=== PATIENT | male | born 1950 | race Two or more races ===

== ENCOUNTER 2019-03-16 00:32 | Emergency (ER) | payer OTHER ==
[~2019-03-16] VITALS: Ht 167.6 cm; Wt 68.0 kg
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
--- NOTE | 2019-03-16 00:55 | NUR ---
IV LINE OBTAINED ON L AC 18G. BLOOD DRAWN DIRECTOR OF CLOUD SERVICES AT BEDSIDE.
[2019-03-16] MEDS ORDERED: ACETAMINOPHEN ES 500 MG TABLET ONE (00:58)
[2019-03-16] MEDS ORDERED: ACETAMINOPHEN ES 500 MG TABLET PO ONE (01:00)
[2019-03-16] MEDS ORDERED: IV NS 0.9% 1,000 ML BAG IV ONE ×3 (01:00→04:00)
[2019-03-16 01:05] LABS: CALCIUM, SERUM 8.9 mg/dL (8.5-10.1); CREATININE 1.1 mg/dL (0.6-1.3); POTASSIUM 4.2 mmol/L (3.5-5.1)
[2019-03-16] MEDS ORDERED: CT SWABBABLE VALVE TRANS SET 1 EA INFUS.SET MC ONE (01:06)
[2019-03-16] MEDS ORDERED: IOHEXOL-300 100 ML VIAL IV ONE (01:06)
[2019-03-16] MEDS ORDERED: IV NS 0.9% 250 ML IV ONE (01:06)
[2019-03-16 01:10] LABS: BASOPHILS % (AUTO) 0.1 % (0.0-2.0); HEMATOCRIT 54 % (39-51); LYMPHOCYTES # (AUTO) 0.4 /CMM (0.8-4.8); LYMPHOCYTES % (AUTO) 1.8 % (20.0-44.0); MEAN CORPUSCULAR HGB CONC 33 g/dl (31.0-36.0); MEAN CORPUSCULAR VOLUME 89 fL (80-96); MONOCYTES # (AUTO) 0.9 /CMM (0.1-1.30); MONOCYTES % (AUTO) 3.9 % (2.0-12.0); NEUTROPHILS # (AUTO) 21.7 /CMM (1.8-8.9); NEUTROPHILS % (AUTO) 94.2 % (43.0-81.0); PLATELET COUNT (AUTO) 350 /CMM (150-450); RED BLOOD CELL COUNT(AUTO) 6.08 MIL/uL (4.5-6.0)
--- NOTE | 2019-03-16 01:10 | NUR ---
PT GOING TO RADIOLOGY
[2019-03-16 01:11] LABS: ALBUMIN 3.5 g/dL (3.4-5.0); BILIRUBIN,DIRECT 0.1 mg/dL (0.0-0.2); TOTAL PROTEIN, SERUM 7.5 g/dL (6.4-8.2)
[2019-03-16 02:44] LABS: APPEARANCE,URINE CLEAR (CLEAR); BILIRUBIN,URINE NEGATIVE (NEGATIVE); BLOOD, URINE NEGATIVE Ery/uL (NEGATIVE); COLOR,URINE YELLOW (YELLOW); KETONES,URINE 1+ (NEGATIVE); LEUKOCYTE ESTERASE ,URINE NEGATIVE (NEGATIVE); NITRITE, URINE NEGATIVE (NEGATIVE); PROTEIN,URINE TRACE mg/dl (NEGATIVE); UGLUCOSE NEGATIVE (NEGATIVE); UROBILINOGEN,URINE 0.2 EU/dL (0.2)
--- NOTE | 2019-03-16 02:46 | NUR ---
MADE AWARE THAT PT'S HR IS STILL 135. VERBAL ORDER TO GIVE ANOTHER LITER OF NS
[2019-03-16 02:49] LABS: BACTERIA,URINE Few /HPF (None Seen); MUCUS,URINE Moderate /LPF (None Seen); RBC,URINE 0-2 /HPF (0-2); SPERM,URINE Few /HPF (None Seen); SQUAMOUS EPITHELIAL CELL,UR Rare /HPF (None Seen)
[2019-03-16 02:55] LABS: BAND % (MANUAL) 8 % (0.0-5.0); LYMPHOCYTES % (MANUAL) 2 % (16-48); MONOCYTES % (MANUAL) 1 % (0-11.0); NEUTROPHILS % (MANUAL) 89 (42-76)
--- NOTE | 2019-03-16 03:35 | NUR ---
PT COMPLETED 2ND LITER OF NS VIA IV. HR STILL 133 BPM. MD MADE AWARE. RECEIVED VERBAL ORDER TO GIVE ANOTHER LITER OF NS.
--- NOTE | 2019-03-16 03:38 | NUR ---
PT URINATED INTO URINAL AND NOTED 200ML URINE OUTPUT. MD ERNANDEZ AWARE.
--- NOTE | 2019-03-16 03:44 | NUR ---
ORAL TEMP 99.5 MD AWARE.
[2019-03-16] MEDS ORDERED: METRONIDAZOLE 500MG/ NS 100ML 100 ML IV ONE (03:47)
[2019-03-16] MEDS ORDERED: PIPERACILLIN /TAZOBACTAM 3.375 G VIAL IV ONE (03:47)
[2019-03-16] MEDS ORDERED: FLAGYL/NS RTU 500 MG/100 ML PIGGYBACK IV ONE (04:00)
[2019-03-16] MEDS ORDERED: PIPERACILLIN /TAZOBACTAM 3.375 G in IV D5W 50 ML IV ONE (04:00)
--- NOTE | 2019-03-16 04:34 | NUR ---
RECEIVED A CALL FROM KISHA AT [facility] [place]. PT IS ACCEPTED AT [facility]. ACCEPTING , DR CLAYTON. PT GOING TO ER. REPORT TO BE GIVEN AT [phone]. PT WILL BE TRANSPORT VIA ACLS, ETA 0515.
--- NOTE | 2019-03-16 04:42 | NUR ---
CALLED [facility] TO GIVE REPORT. SPOKE WITH TANYA RODRIGUEZ. PT P/U ETA [id number]
--- NOTE | 2019-03-16 04:49 | NUR ---
PT'S URINAL NOTED WITH 100ML OF URINE.
--- NOTE | 2019-03-16 05:29 | NUR ---
Patient Tranfers to outside Facility Physician: DR. CLAYTON Location: [facility].
--- NOTE | 2019-03-16 05:30 | NUR ---
AMBULANCE AT BEDSIDE FOR PT TRANSPORT TO [facility] WITH ACLS PROTOCOL. PT IS IN STABLE CONDITION. AAOX4. NAD. BREATHING EVEN AND UNLABORED. PT IS TRANSPORTED ON VIA AMBULANCE IN A GURNEY WITH 2 AMBULANCE STAFF. REPORTS AND PAPERWORK GIVEN.
[2019-03-16 05:32] VITALS: BP 141/66
== END 2019-03-16 05:38 | disposition short-term general hospital (02) ==
LOC: ER 00:33
DX: K57.80 Diverticulitis of intestine, part unspecified, with perforation and abscess without bleeding (principal); R00.0 Tachycardia, unspecified; V49.49XA Driver injured in collision with other motor vehicles in traffic accident, initial encounter; Y93.89 Activity, other specified; Y92.413 State road as the place of occurrence of the external cause; Y99.8 Other external cause status
CPT/HCPCS: 36415; 71045; 74177; 80048; 80076; 80305; 81001; 85025; 85730; 93005; 96365; 96367; 99285; J2543; J3490; J7030 ×3; J7050; J7060; Q9967; 81000-TC

== ENCOUNTER 2023-03-23 17:59 | Emergency (ER) | payer OTHER ==
[~2023-03-23] VITALS: Ht 172.7 cm; Wt 73.0 kg
[2023-03-23] MEDS ORDERED: IV NS 0.9% 1,000 ML BAG IV ONE (18:30)
--- NOTE | 2023-03-23 19:07 | NUR ---
[id number] LOWER BACK PAIN S/P GLF/NEAR SYNCOPE WHILE WALKING. AOX4 PUT ON BED ON POX AND BEDSIDE MONITOR
[2023-03-23 19:25] LABS: BASOPHILS # (AUTO) 0.1 K/uL (0.0-0.2); MEAN CORPUSCULAR VOLUME 87 fL (80-96); NEUTROPHILS # (AUTO) 8.2 K/uL (1.8-8.9)
--- NOTE | 2023-03-23 19:36 | NUR ---
PT TAKEN TO CT
[2023-03-23 19:41] LABS: ALANINE AMINOTRANSFERASE 20 U/L (12-78); ALBUMIN 3.4 g/dL (3.4-5.0); ALKALINE PHOSPHATASE 90 U/L (46-116); ASPARTATE AMINOTRANSFERASE 13 U/L (15-37); BILIRUBIN,DIRECT 0.1 mg/dL (0.0-0.2); BILIRUBIN,TOTAL 0.6 mg/dL (0.2-1.0); CALCIUM, SERUM 9.2 mg/dL (8.5-10.1); CARBON DIOXIDE 28 mmol/L (21-32); CHLORIDE 105 mmol/L (98-107); CREATININE 0.9 mg/dL (0.6-1.3); GLUCOSE 88 mg/dL (74-106); POTASSIUM 3.8 mmol/L (3.5-5.1); SODIUM SERUM 140 mmol/L (136-145); TOTAL PROTEIN, SERUM 7.1 g/dL (6.4-8.2); UREA NITROGEN, BLOOD 23 mg/dL (7-18)
[2023-03-23 19:42] LABS: BASOPHILS % (AUTO) 0.8 % (0.0-2.0); EOSINOPHILS % (AUTO) 0.5 % (0.0-6.0); HEMATOCRIT 52 % (39-51); HEMOGLOBIN 16.9 g/dL (13.5-17.5); LYMPHOCYTES # (AUTO) 1.1 K/uL (0.8-4.8); LYMPHOCYTES % (AUTO) 10.6 % (20.0-44.0); MEAN CORPUSCULAR HGB CONC 33 g/dl (31.0-36.0); MONOCYTES # (AUTO) 1.1 K/uL (0.1-1.30); MONOCYTES % (AUTO) 10.4 % (2.0-12.0); NEUTROPHILS % (AUTO) 77.7 % (43.0-81.0); PLATELET COUNT (AUTO) 262 K/uL (150-450); RED BLOOD CELL COUNT(AUTO) 5.97 MIL/uL (4.5-6.0); WHITE BLOOD COUNT (AUTO) 10.6 K/uL (4.3-11.0)
--- NOTE | 2023-03-23 19:49 | NUR ---
BACK TO ROOM FROM CT VIA ANGIE
--- NOTE | 2023-03-23 22:55 | NUR ---
CALLED [facility] TO ARRANGE RANSPORTATION BACK HOME
--- NOTE | 2023-03-23 23:03 | NUR ---
DR ARTEAGA ON THE PHONE WITH RICCO TINAJERO
--- NOTE | 2023-03-24 | NUR ---
REPORT GIVEN TO [facility]. PT WILL BE GOING BACK HOME.
[2023-03-24 00:34] VITALS: BP 135/91
== END 2023-03-24 00:35 | disposition home or self-care (01) ==
LOC: ER 18:37
DX: R55 Syncope and collapse (principal)
CPT/HCPCS: 99285; 96360; 70450; 71045; 93005; 85025; 80048; 80076; 36415; 84484 ×2; J7030